=== PATIENT | male | born 1975 | race Caucasian/White ===

== ENCOUNTER 2021-06-04 16:50 | Emergency (ER) | payer OTHER, SELFPAY ==
[2021-06-04 16:51] VITALS: BP 141/88; PULSE 86; RESP 28; TEMP 37.4; O2SAT 99; BMI 27.9
[2021-06-04 17:28] VITALS: O2SAT 96; O2SAT 97
[2021-06-04 17:31] VITALS: BP 134/68; PULSE 84; RESP 18; TEMP 37.4; O2SAT 97
--- NOTE | 2021-06-04 17:32 | ED.VIS.DYS ---
HPI History of Present Illness Chief Complaint: Shortness of Breath Narrative Narrative: Patient on day 6 of COVID-19 symptoms. He states that he has chills, body aches. No loss of taste or smell. His symptoms started with a headache and nausea on Sunday and the nausea has resolved. He has intermittent headaches. He has low-grade fevers at home. Patient states these get better with ibuprofen but when this wears off his symptoms come back. Patient is not taking any Tylenol. He states he is able to eat and drink although he does not feel like it. He is making urine and stool. He feels like he is dyspneic with exertion, and he states that when he is sleeping he feels like he is gasping for air. He reports that his pulse ox has been 88-91 at home. He is unsure if his pulse oximeter is accurate. He is not having any chest pain. PFSH PFSH Home Medications omeprazole 20 mg PO DAILY 06/04/21 [History Last Taken Unknown] Allergy/AdvReac Type Severity Reaction Status Date / Time No Known Allergies Allergy Verified 06/04/21 17:34 Surgical History History of partial knee replacement Social History Smoking Status: Never smoker ROS ROS ED Constitutional Constitutional ED: Reports chills and fever(s) Eyes Eyes: Denies blurry vision or diplopia ENT ENT ED: Denies rhinorrhea or sore throat Cardiovascular Cardiovascular: Denies chest pain Respiratory/Chest Respiratory/Chest: Reports cough, dyspnea and dyspnea on exertion Gastrointestinal Gastrointestinal: Denies abdominal pain, nausea or vomiting Genitourinary Genitourinary ED: Denies dysuria or hematuria Musculoskeletal Musculoskeletal: Reports myalgias; Denies arthralgias or neck pain Integumentary Denies Abrasions or rash Neurologic Neurologic: Reports headache(s); Denies paresthesias or weakness EXAM Physical Exam Const Vital Signs: 06/04/21 16:51 Temperature 99.3 F H Temperature Source Temporal Pulse Rate 86 Respiratory Rate 28 H Blood Pressure 141/88 H Blood Pressure Mean 105 Pulse Ox 99 Oxygen Delivery Method Room Air Positive well nourished General Appearance ED: NAD; Negative for pallor HEENT Reports normocephalic, head/scalp atraumatic and moist mucous membranes atraumatic Eyes PERRL and EOMs intact bilaterally Neck no lymphadenopathy and supple Chest Wall inspection of chest normal and palpation of chest normal Resp normal respiratory effort and clear to auscultation bilaterally Auscultation: Negative for rales, rhonchi or wheezes Cardio regular rate and regular rhythm GI normal to inspection, nondistended, normoactive bowel sounds and non-distended Auscultation: normoactive bowel sounds Palpation: soft Narrative: Deferred Back/Spine Cervical Spine: Negative for cervical spine tenderness Extremity normal to inspection General Extremety ED: Negative for edema or tenderness General Extremity: Negative for edema Neuro oriented x3 and CN's II-XII intact bilaterally Sensorium / Orientation: alert Motor Exam: strength 5/5 throughout Psych mental status grossly normal Attitude: No agitated Skin no rashes or lesions noted and no wounds General Skin Exam: Negative for jaundice or pallor MDM MDM MDM Narrative Medical decision making narrative: Patient presenting with shortness of breath and a cough. He also has chills and body aches. He is concerned that his pulse ox was low at home. It is 99% here at rest. I did ambulate the patient in the room at the bedside and he walked for 30 seconds and maintain O2 sats of 96%. He appeared to have a stable gait and was not falling. Patient's lungs are clear to auscultation. Exam is otherwise normal. Counseled patient that I could refer him for monoclonal antibodies, but he stated that he had a home test. I will send for Covid PCR and set him up for monoclonal antibodies. He will continue to monitor his oxygen levels and return if they are getting low. At this point I feel the patient is stable for discharge and follow-up outpatient. Impression: 1 COVID-19 Discharge Plan Triage Chief Complaint: Shortness of Breath ED Provider: Chau Manley Dx/Rx/DC Orders Prescriptions: No Action omeprazole 20 mg Capsule,Delayed Release(Dr/Ec) 20 mg PO DAILY RF: 0 Primary Care Provider: Richard Cano
== END 2021-06-04 18:02 | disposition home or self-care (01) ==
PROVIDERS: Emergency Provider Student in an Organized Health Care Education/Training Program; PCP Family Medicine
DX: U07.1 COVID-19 (principal)
CPT/HCPCS: 87635; 99282; U0003; U0005

== ENCOUNTER 2021-06-07 08:33 | Outpatient (CLI) | payer OTHER, SELFPAY ==
[2021-06-07 08:43] VITALS: BP 130/78; PULSE 80; RESP 18; TEMP 36.9; O2SAT 97; BMI 27.9
[2021-06-07] MEDS: 0.9% Saline Lock 10 ML Syringe IV (08:49)
[2021-06-07 09:52] VITALS: BP 116/74; PULSE 75; RESP 16; TEMP 37.2; O2SAT 97
[2021-06-07 10:39] VITALS: BP 122/74; PULSE 76; RESP 16; TEMP 37.4; O2SAT 98
== END 2021-06-07 23:59 | disposition home or self-care (01) ==
LOC: MS3OUT 08:33 → MS3 08:35
PROVIDERS: PCP Family Medicine; Referring Provider Student in an Organized Health Care Education/Training Program; Visit Provider Student in an Organized Health Care Education/Training Program
DX: Z23 Encounter for immunization (principal); U07.1 COVID-19
CPT/HCPCS: J7050; M0243; A4216; Q0240

== ENCOUNTER 2021-06-07 19:39 | Emergency (ER) | payer OTHER, SELFPAY ==
[2021-06-07 19:39] VITALS: BP 119/70; PULSE 91; RESP 18; TEMP 36.6; O2SAT 94; BMI 27.9
--- NOTE | 2021-06-07 21:37 | EDS_ITS ---
HPI History of Present Illness Chief Complaint: Nausea/Vomiting/Diarrhea Informant: patient and spouse/S.O. Onset/Context/Timing Onset: Today Narrative Narrative: Patient is currently on day 8 of Covid. He got monoclonal antibody treatment this morning. He states after getting home he has had chills with nausea and vomiting. His fever had been improved but did seem to go up again today. He has a mild dry cough. [facility] Medical History (Updated 06/07/21 @ 23:[address] Stephani Blackwell MD) COVID-19 Medical History no medical history no medical history Home Medications omeprazole 20 mg PO DAILY 06/04/21 [History Last Taken Unknown] ondansetron 4 mg PO Q8H PRN #10 tab 06/07/21 [Rx Last Taken Unknown] Allergy/AdvReac Type Severity Reaction Status Date / Time No Known Allergies Allergy Verified 06/04/21 17:34 Surgical History History of partial knee replacement Social History Smoking Status: Never smoker ROS ROS ED Constitutional Constitutional ED: Reports chills and fever(s) Eyes Eyes: Denies blurry vision ENT ENT ED: Denies rhinorrhea or sore throat Cardiovascular Cardiovascular: Denies chest pain Respiratory/Chest Respiratory/Chest: Reports cough and dyspnea Gastrointestinal Gastrointestinal: Reports nausea and vomiting Genitourinary Genitourinary ED: Reports other Details: Decreased urine output Musculoskeletal Musculoskeletal: Reports myalgias Neurologic Neurologic: Denies headache(s) Allergic/Immunologic Allergic/Immunologic ED: Denies urticaria EXAM Physical Exam Const Vital Signs: 06/07/21 19:39 Temperature 98 F Temperature Source Temporal Pulse Rate 91 Respiratory Rate 18 Blood Pressure 119/70 Blood Pressure Mean 86 Pulse Ox 94 Oxygen Delivery Method Room Air Positive well nourished and well developed General Appearance ED: well developed HEENT Reports moist mucous membranes Eyes PERRL and EOMs intact bilaterally Neck supple Chest Wall inspection of chest normal and palpation of chest normal Resp normal respiratory effort and clear to auscultation bilaterally Cardio regular rate and regular rhythm GI non-tender Auscultation: hypoactive bowel sounds Palpation: soft Extremity normal to inspection Neuro oriented x3 Sensorium / Orientation: alert Psych mental status grossly normal Skin no rashes or lesions noted MDM MDM MDM Narrative Medical decision making narrative: Patient given liter IV fluids. Is given Zofran for nausea. Lab work and urinalysis ordered. Lab Data Attestation: I reviewed the patient's lab results. Labs: Laboratory Results - last 24 hr 06/07/21 06/07/21 06/07/21 21:50 21:50 23:00 WBC 5.9 RBC 4.91 Hgb 14.8 Hct 43.6 MCV 88.8 MCH 30.1 MCHC 33.9 RDW Std Deviation 42.9 RDW Coeff of [place] 13.1 Plt Count 137 L MPV 9.4 Immature Gran % (Auto) 0.500 Neut % (Auto) 92.0 H Lymph % (Auto) 4.9 L [place] % (Auto) 2.2 Eos % (Auto) 0.2 Baso % (Auto) 0.2 Absolute Neuts (auto) 5.5 Absolute Lymphs (auto) 0.29 L Nucleated RBC % 0 Differential Comment SCANNED Sodium 140 Potassium 3.7 Chloride 103 Carbon Dioxide 28.0 Anion Gap 9 BUN 11 Creatinine 0.87 Estim Creat Clear Calc 108.38 Est GFR (MDRD) Af Amer 121 Est GFR (MDRD) Non-Af 100 BUN/Creatinine Ratio 12.7 Glucose 108 H Calcium 8.3 L Urine Color Yellow Urine Clarity Clear Urine pH 6.0 Ur Specific [place] 1.025 Urine Protein 30 H Urine Glucose (UA) Normal Urine Ketones 150 A* Urine Occult Blood Negative Urine Nitrite Negative Urine Bilirubin Negative Urine Urobilinogen 1 H Ur Leukocyte Esterase Negative Urine RBC 0 SEEN Urine WBC 0-5 SEEN Ur Squamous Epith Cells 0 SEEN Urine Bacteria 0 SEEN Urine Mucus 0 SEEN Treatment and Re-Evaluation Comments:: Lab work unremarkable with normal renal function. Urinalysis significant only for ketones. Patient was given a total of 1500 cc IV fluid. Urine still appears dark in color. Patient has been able to tolerate p.o. fluids without difficulty. He will be discharged with a prescription for Zofran. Discharge Plan Triage Chief Complaint: Nausea/Vomiting/Diarrhea ED Provider: Stephani Blackwell Dx/Rx/DC Orders Clinical Impression: Vomiting, COVID-19 Instructions: Coronavirus Disease 2019 (COVID-19): Overview, Coronavirus Disease 2019 (COVID-19): Caring for Yourself or Others, ED Vomiting (Adult) Prescriptions: New ondansetron 4 mg tablet,disintegrating 4 mg PO Q8H PRN (Reason: nausea and vomiting) Qty: 10 RF: 0 No Action omeprazole 20 mg Capsule,Delayed Release(Dr/Ec) 20 mg PO DAILY RF: 0 Primary Care Provider: Richard Cano Referrals: Richard Cano DO [Primary Care Provider] - 1-2 Weeks Disposition Disposition: Home, Self Care
[2021-06-07] MEDS: 0.9% Normal Saline 1,000 ML 1000 ML IV (21:49)
[2021-06-07] MEDS: Ondansetron 4 MG/2 ML Vial IV (21:50)
[2021-06-07 22:03] LABS: Absolute Lymphocyte Count 0.29 X10^3/uL (0.83-4.51); Absolute Neutrophil Count 5.5 X10^3/uL (2.0-7.7); Basophil# 0.01 X10^3/uL; Basophil% 0.2 % (0-1); Eosinophil# 0.01 X10^3/uL; Eosinophils% 0.2 % (0-5); Hematocrit 43.6 % (40-54); Hemoglobin 14.8 g/dL (13.0-16.5); Lymphocyte # 0.29 X10^3/ul (0.83-4.51); Lymphocyte % 4.9 % (19-41); Mean Corp Hgb Conc 33.9 g/dL (32-36); Mean Corpuscular Hgb 30.1 pg (27.0-32.0); Mean Corpuscular Volume 88.8 fL (80-94); Mean Platelet Vol. 9.4 fl (6.2-12.0); Monocyte# 0.13 X10^3/uL; Monocyte% 2.2 % (0-10); NRBC Flagged by Analyzer 0 % (0-5); Neutrophil # 5.46 X10^3/uL (2.7-7.7); POSITIVE DIFFERENTIAL YES; Platelet Count 137 K/mm3 (150-450); RBC Distribution Width CV 13.1 % (11.6-14.6); RBC Distribution Width SD 42.9 fl (35.1-43.9); Red Blood Count 4.91 M/mm3 (4.6-6.2); White Blood Count 5.9 K/mm3 (4.4-11.0)
[2021-06-07 22:10] LABS: Differential Indicated SCAN CRITERIA MET
[2021-06-07 22:14] LABS: Anion Gap 9 (5-15); BUN 11 mg/dL (7-18); BUN/Creat Ratio 12.7 RATIO (10-20); Calcium,Total 8.3 mg/dL (8.5-10.1); Chloride 103 mmol/L (98-107); Creatinine, Serum 0.87 mg/dL (0.70-1.30); EST Glomerular Filtration Rate 100 mL/min (>60); Est Glom Filt Rate - Afr Amer 121 mL/min (>60); Estimated Creatinine Clearance 108.38 ml/min; Glucose 108 mg/dL (74-106); Potassium 3.7 mmol/L (3.5-5.1); Sodium Level 140 mmol/L (136-145)
[2021-06-07 22:38] LABS: Differential Comment SCANNED
[2021-06-07 23:10] LABS: Bacteria 0 SEEN /hpf (None Seen); Mucous, Urine 0 SEEN /hpf (<or=2+); Red Blood Cells-Urine 0 SEEN /hpf (0-5); Squamous Epithelial Cells - UA 0 SEEN /hpf (0-5)
[2021-06-07 23:22] LABS: Color, Urine Yellow (Yellow); Glucose, Dipstick Normal (Normal); Leukocyte Esterase-Dipstick Negative /ul (Negative); Nitrite-Dipstick Negative (Negative); Occult Blood-Urine Negative /ul (Negative); Protein-Dipstick 30 mg/dl (Negative); Specific Gravity, Urine 1.025 (1.002-1.030); Urine Bilirubin Dipstick Negative (Negative); Urine Clarity Clear (Clear); Urine Urobilinogen 1 mg/dl (Normal)
[2021-06-07 23:34] LABS: Ketone-Dipstick 150 mg/dl (Negative)
[2021-06-07 23:36] LABS: White Blood Cells 0-5 SEEN /hpf (0-5)
== END 2021-06-08 00:02 | disposition home or self-care (01) ==
PROVIDERS: Emergency Provider Emergency Medicine; PCP Family Medicine; Visit Provider Emergency Medicine
DX: U07.1 COVID-19 (principal); R11.2 Nausea with vomiting, unspecified; R19.7 Diarrhea, unspecified
CPT/HCPCS: 80048; 81001; 85025; 96361; 96374; 99283; J7030; J7040; J2405